=== PATIENT | male | born 1955 | race Two or more races ===

== ENCOUNTER 2021-11-25 11:58 | Inpatient (IN) | payer OTHER ==
[~2021-11-25] VITALS: Ht 121.9 cm; Wt 38.6 kg
--- NOTE | 2021-11-25 13:37 | NUR ---
PATIENT IS RECIEVED FROM AMBULANCE UNIT IN RESPIRATORY DISTRESS. PATIENT IS USING ABDOMINAL ACESSORY MUSCLES IN ORDER TO BREATH. PATIENT HAS ANKILOSED AND HAS STIFF LIMBS. 2 IV LINES ARE STARTED ON LEFT ARM AND LAB SAMPLES ARE TAKEN ACCORDIN TO DOCTOR'S ORDERS. IV MED IS ADMINISTERED AND PYLE IS PLACED USING STERILE TECHNIQUE. PATIENT IS CONNECTED TO TELEMETRY AND OXIMETRY AND NON REBREATHING MASK AT 100%.
--- NOTE | 2021-11-25 16:00 | NUR ---
SE RECIBE PARA DESORIENTADO EN BUCK #3 DE UNIDAD DE CRITICO. PTE EN BUCK CON BARANDAS ELEVADAS Y CAEBCERA A 45GRADOS. PTE CONECTADO A MONITOR CARDIACO CON OXIMETRIA CONTINUA. PTE CON H/L X2 EN BRAZO LT LIBRES DE EDEMA. PTE CON NONREBREATHER MASK AL 100% COLOCADA Y FGOLEY BAJANDO A GRAVEDAD. PTE SE OBSERVA ANQUILOZADO EN EXTREMIDADES SUPERIORES E INFERIORES. PTE SE CONTIONUA MONITORIANDO POR CAMBIOS.
--- NOTE | 2021-11-25 17:30 | NUR ---
PTE CONSULTADA CON MEDICINA INTERNA. SE CRISTHIAN MUESTRAS DE LABORATORIO A PTE UTILIZANDO MEDIDAS ASEPTICAS.
--- NOTE | 2021-11-25 19:00 | NUR ---
SE MIDEN S/V A PTE Y SE DOCUMENTAN. SE SUCCIONA A PTE NO SE OBSERVAN SECREIONES. PTE SE CONTINUA MONITORIANDO POR CAMBIOS.
--- NOTE | 2021-11-25 23:27 | NUR ---
SE RECIBE PTE MASCULINO ALERTA Y NO ORIENTADO,SE MANTIENE CONECTADO A MONITOR CARDIACO FUAD Y OXIMETRIA CONTINUA,SE MANTIENE CON 2 H/L PATENTES EN PERIFERAL IZQUIERDA LIBRES DE EDEMA Y ENROJECIMJENTO,PTE SE OBSERVA AQUILOSADO Y SE COMIENZA A REALIZAR CAMBIOS DE POSICION CADA 2 HRS,SE MANTIENE A PTE CON NON REABREADING MASK,PTE CON PYLE,SE MANTIENE A PTE EN VIGILANCIA FUAD POR CAMBIOS.
== END 2021-12-31 23:36 | disposition home or self-care (01) | DRG 177 ==
LOC: EDBD 11:58 → ER 11:58 → ICU-2 11-26 00:30 → MEDJ 11-26 00:30 → ICU 11-27 22:25 → MEDI 12-04 11:55 → MEDJ 12-07 10:47
PROVIDERS: ADMIT Internal Medicine; ATTEND Internal Medicine
PROC: 5A0945A Assistance with Respiratory Ventilation, 24-96 Consecutive Hours, High Flow/Velocity Cannula (ICD-10-PCS; principal; 2021-11-28)
PROC: 02HV33Z Insertion of Infusion Device into Superior Vena Cava, Percutaneous Approach (ICD-10-PCS; 2021-12-02)
PROC: 30243N1 Transfusion of Nonautologous Red Blood Cells into Central Vein, Percutaneous Approach (ICD-10-PCS; 2021-12-09)
PROC: 0DH63UZ Insertion of Feeding Device into Stomach, Percutaneous Approach (ICD-10-PCS; 2021-12-24)
PROC: 0JBL3ZZ Excision of Right Upper Leg Subcutaneous Tissue and Fascia, Percutaneous Approach (ICD-10-PCS; 2021-12-28)
DX: J69.0 Pneumonitis due to inhalation of food and vomit (principal); B37.1 Pulmonary candidiasis; L89.213 Pressure ulcer of right hip, stage 3; E46 Unspecified protein-calorie malnutrition; Z68.1 Body mass index [BMI] 19.9 or less, adult; R13.19 Other dysphagia; R54 Age-related physical debility; L89.221 Pressure ulcer of left hip, stage 1; M24.60 Ankylosis, unspecified joint; D64.9 Anemia, unspecified; Z74.01 Bed confinement status

== ENCOUNTER 2022-03-10 20:44 | Inpatient (IN) | payer OTHER ==
[~2022-03-10] VITALS: Ht 152.4 cm; Wt 38.6 kg
[2022-03-31] MEDS ORDERED: FOLIC ACID1 MG PO (10:54)
[2022-03-31] MEDS ORDERED: INTESTINEX680 M1 PO (10:54)
[2022-03-31] MEDS ORDERED: ERTAPENEM1 GM IV (10:54)
[2022-03-31] MEDS ORDERED: PROTEINEX-18 LI30 ML PO (10:54)
[2022-03-31] MEDS ORDERED: COZAAR50 MG PO (10:54)
== END 2022-03-31 13:51 | disposition home or self-care (01) | DRG 871 ==
LOC: ER 20:44 → ICU-2 03-11 02:43 → MEDI 03-11 02:43 → MEDJ 03-12 16:12 → MEDI 03-17 16:05
PROVIDERS: ADMIT Internal Medicine; ATTEND Internal Medicine
PROC: BW24ZZZ Computerized Tomography (CT Scan) of Chest and Abdomen (ICD-10-PCS; 2022-03-10)
PROC: B24BYZZ Ultrasonography of Heart with Aorta using Other Contrast (ICD-10-PCS; 2022-03-10)
PROC: 5A09457 Assistance with Respiratory Ventilation, 24-96 Consecutive Hours, Continuous Positive Airway Pressure (ICD-10-PCS; 2022-03-11)
PROC: 4A12X4Z Monitoring of Cardiac Electrical Activity, External Approach (ICD-10-PCS; principal; 2022-03-12)
PROC: 5A0945A Assistance with Respiratory Ventilation, 24-96 Consecutive Hours, High Flow/Velocity Cannula (ICD-10-PCS; 2022-03-12)
DX: A41.9 Sepsis, unspecified organism (principal); I21.A1 Myocardial infarction type 2; L89.224 Pressure ulcer of left hip, stage 4; J69.0 Pneumonitis due to inhalation of food and vomit; I26.99 Other pulmonary embolism without acute cor pulmonale; N39.0 Urinary tract infection, site not specified; E46 Unspecified protein-calorie malnutrition; Z68.1 Body mass index [BMI] 19.9 or less, adult; M24.60 Ankylosis, unspecified joint; R65.20 Severe sepsis without septic shock; F79 Unspecified intellectual disabilities; R91.8 Other nonspecific abnormal finding of lung field; Z74.01 Bed confinement status; E88.09 Other disorders of plasma-protein metabolism, not elsewhere classified; Z93.1 Gastrostomy status